=== PATIENT | male | born 1945 | race Caucasian/White ===

== ENCOUNTER → 2019-04-28 | Outpatient (CLI) | payer OTHER ==
[~2019-04-28] MED LIST: ASA81BEC PO; CHLORTHALIDONE25 MG PO; COZAAR 25 MG TA25 M1 PO; GLIPIZIDE 10 MG10 MG PO; NAPROSYN500 M1 PO; OMEPRAZOLE 20 M20 M1 PO; TOPROL XL25 MG PO
== END ==
LOC: SJCVC 14:21
DX: R07.89 Other chest pain (principal); I10 Essential (primary) hypertension; E78.5 Hyperlipidemia, unspecified; E11.9 Type 2 diabetes mellitus without complications; N18.2 Chronic kidney disease, stage 2 (mild); Z82.49 Family history of ischemic heart disease and other diseases of the circulatory system; Z79.899 Other long term (current) drug therapy

== ENCOUNTER → 2019-05-06 | Outpatient (CLI) | payer OTHER | LOC: SJCVCIMAG 15:02 | DX: I65.23 Occlusion and stenosis of bilateral carotid arteries (principal); R94.39 Abnormal result of other cardiovascular function study; R07.89 Other chest pain; R06.00 Dyspnea, unspecified; I10 Essential (primary) hypertension; E78.5 Hyperlipidemia, unspecified ==

== ENCOUNTER → 2019-05-16 | Outpatient (CLI) | payer OTHER ==
[~2019-05-16] VITALS: Ht 177.8 cm; Wt 91.6 kg
[2019-05-16 07:23] VITALS: BP 143/70
--- NOTE | 2019-05-16 14:54 | CATHLAB ---
[facility] [place] [address] INVASIVE PROCEDURE REPORT Name: JOHANNE DE LA PAZ Room #: REG XIN Mari#: [id number] Admission: 05/16/19 Attend Phys: Rudy Rouse MD, Discharge: Date of : 41 Report #: [id number] THIS REPORT FOR: cc: Mingo Williamson James L. DO Lundgren, Craig H. MD [facility] ~ APPROVED REPORT Study performed: 05/16/2019 07:54:59 Patient Details Patient Status: Out-Patient Room #: The patient is a 73 year-old male Event Personnel Rudy Rouse Senior Speech Pathologist, Kitty Cruz RN RN, Leonila Salcedo RTR Raymon Aguirre Sherra RTR Monitor Procedures Performed Art Access - R femoral artery* Left Heart Cath w/or w/o Coronaries [id number] [facility] [address] Initial Mod Sed Same Phys/QHP Gr5y 993775 84835 Mod Sed Same Phys/QHP Ea 510006 Hemostasis w/ Mynx Indication Chest pain Procedure Narrative The Right Groin^ was infiltrated with 1% Lidocaine subcutaneous anesthesia. A PINNACLE 6FR Sheath #[id number] sheath was inserted into the RFA^. Coronary angiography was performed using coronary diagnostic catheters. The right coronary system was accessed and visualized with a JR4 catheter. The left coronary system was accessed and visualized with a AL1 catheter. Left ventricular/Aortic Valve gradient assessed via catheter pullback. Closure device was deployed with a 6 Fr MYNXGRIP 6/7F #[id number]. The patient tolerated the procedure well and there were no complications associated with the procedure. There was no hematoma. Intraoperative Conscious Sedation Sedation start time: 808 Case end Time: 853 Fentanyl 100 mcg Versed 1 mg Fluoro Time: 15.80 minutes Dose: DAP 82189.00 cGycm2 2006 mGy [facility] [place] [address] INVASIVE PROCEDURE REPORT Name: DE LA PAZJOHANNE [id number] Admission: 05/16/19 Attend Phys: Rudy Rouse, Discharge: Date of : 41 Report #: [id number] Contrast Type and Amount: Visipaque 150 ml Coronary Angiography The patient's coronary anatomy is right dominant. [place] Artery Percent Stenosis Multiple catheters were used with multiple exchanges. An AL 1 provided closest selective engagement of the left main. Diagnostic Cath Left Main Normal left main LAD Moderate size left anterior descending, normal Circumflex Large nondominant circumflex comprised of a single marginal branch OM1 Normal single first marginal branch Right Coronary Right coronary. Dominant Left Ventriculography Left Ventriculography was not performed. Ejection Fraction was 60-65% based off patient's Echocardiogram. Hemodynamics The aortic pressure is 132/66 mmHg with a mean of 93 mmHg. The left ventricular pressure is 140/9 mmHg with a mean of mmHg. The left ventricular end diastolic pressure is 17 mmHg. There was no gradient across the aortic valve upon pullback. Conclusion 1. Technically difficult anatomy 2. Normal left main 3. Normal coronary vasculature. Right coronary dominant circulation Recommendations Agg[facility] <ELECTRONICALLY SIGNED> By: Rudy Rouse MD, FACC 05/16/19 1452 1452 1452 Rudy Rouse MD, FACC /INF
--- NOTE | 2019-05-16 15:47 | EKG ---
[facility] [place] [address] ELECTROCARDIOGRAM REPORT Name: JOHANNE DE LA PAZ Room #: [facility]#: [id number] Admission: 05/16/19 Attend Phys: Rudy Rouse MD, Discharge: Date of : 41 Report #: [id number] THIS REPORT FOR: cc: Mingo Williamson James L. DO Lundgren,Rudy Dunham MD [facility] THIS REPORT FOR: //name// [facility] Test Date: 2019-05-16 Test Time: 07:32:05 Pat Name: JOHANNE DE LA PAZ Department: Room: Gender: Heat Regulator: Cherrie ROA : 1945 Requested By: Rudy Rouse Order Number: [id number] MD: Rudy Rouse Measurements Intervals [place] Rate: 54 P: -8 UT: 294 QRS: -47 QRSD: 119 T: 43 QT: 429 QTc: 407 Interpretive Statements Sinus rhythm Prolonged UT interval Left anterior fascicular block No previous ECG available for comparison Electronically Signed On 05-16-2019 15:46:08 CDT by Rudy Rouse [email or web address] <ELECTRONICALLY SIGNED> By: Rudy Rouse MD, FACC 05/16/19 1546 0732 0732 Rudy Rouse MD, [facility] /EPI
== END | disposition home or self-care (01) ==
LOC: CATH 06:31
DX: R07.9 Chest pain, unspecified (principal); R94.39 Abnormal result of other cardiovascular function study; I12.9 Hypertensive chronic kidney disease with stage 1 through stage 4 chronic kidney disease, or unspecified chronic kidney disease; E11.22 Type 2 diabetes mellitus with diabetic chronic kidney disease; N18.2 Chronic kidney disease, stage 2 (mild); K21.9 Gastro-esophageal reflux disease without esophagitis; Z79.82 Long term (current) use of aspirin; Z79.899 Other long term (current) drug therapy; Z98.890 Other specified postprocedural states

== ENCOUNTER → 2020-09-20 | Outpatient (CLI) | payer OTHER ==
[~2020-09-20] VITALS: Ht 177.8 cm; Wt 82.6 kg
[~2020-09-20] MED LIST changes: +AMOXICILLIN 50500 MG PO; +COZAAR100 MG PO; +GLIPIZIDE5 MG PO; +LIPITOR 10 MG10 M1 PO; +NEURONTIN100 MG PO; +SPIRONOLACTONE25 M1 PO; +XARELTO10 M1 PO
[2020-09-20 11:49] VITALS: BP 135/71
[2020-09-20 12:17] LABS: HEMATOCRIT 38.8 % (42.0-52.0); HEMOGLOBIN 12.9 gm/dL (14.0-18.0); MCH 30.7 pg (26.0-34.0); MCHC 33.4 g/dL (28.0-37.0); RBC 4.22 mil/uL (4.50-6.00); RDW 14.7 % (10.5-14.5); WBC 6.4 thou/uL (4.0-11.0)
[2020-09-20 12:35] LABS: CALCIUM 9.1 mg/dL (8.5-10.1); CREATININE 1.5 mg/dL (0.7-1.3); POTASSIUM 4.3 mmol/L (3.5-5.1)
[2020-09-20 14:00] VITALS: BP 158/94
[2020-09-20 14:15] VITALS: BP 140/71
== END | disposition home or self-care (01) ==
LOC: CATH 09:13
PROVIDERS: ATTEND Nuclear Medicine Nuclear Cardiology
DX: Z45.89 Encounter for adjustment and management of other implanted devices (principal); I12.9 Hypertensive chronic kidney disease with stage 1 through stage 4 chronic kidney disease, or unspecified chronic kidney disease; E11.22 Type 2 diabetes mellitus with diabetic chronic kidney disease; N18.2 Chronic kidney disease, stage 2 (mild); K21.9 Gastro-esophageal reflux disease without esophagitis; Z98.890 Other specified postprocedural states; Z79.899 Other long term (current) drug therapy; Z90.49 Acquired absence of other specified parts of digestive tract; Z86.711 Personal history of pulmonary embolism; Z79.01 Long term (current) use of anticoagulants

== ENCOUNTER → 2020-11-27 | Outpatient (CLI) | payer OTHER | LOC: SJCVC 13:26 | PROVIDERS: ATTEND Internal Medicine | DX: R94.31 Abnormal electrocardiogram [ECG] [EKG] (principal); I44.0 Atrioventricular block, first degree; I12.9 Hypertensive chronic kidney disease with stage 1 through stage 4 chronic kidney disease, or unspecified chronic kidney disease; E11.22 Type 2 diabetes mellitus with diabetic chronic kidney disease; N18.2 Chronic kidney disease, stage 2 (mild); E78.5 Hyperlipidemia, unspecified; K81.9 Cholecystitis, unspecified; K27.9 Peptic ulcer, site unspecified, unspecified as acute or chronic, without hemorrhage or perforation; I82.402 Acute embolism and thrombosis of unspecified deep veins of left lower extremity; R09.89 Other specified symptoms and signs involving the circulatory and respiratory systems; K52.9 Noninfective gastroenteritis and colitis, unspecified; K21.9 Gastro-esophageal reflux disease without esophagitis; N20.0 Calculus of kidney; Z79.899 Other long term (current) drug therapy ==